=== PATIENT | female | born 1990 | race African-American/Black ===

== ENCOUNTER 2020-08-29 12:55 | Emergency (ER) | payer OTHER, SELFPAY ==
--- NOTE | ~2020-08-29 | XR_ITS ---
EXAMINATION: XR chest 1V portable INDICATION: Transient alteration of awareness TECHNIQUE: Portable AP chest at 1332 hours COMPARISON: None available FINDINGS: The lungs are free of acute opacities. There is no pleural effusion or pneumothorax. The ca rdiomediastinal silhouette is normal. The visualized osseous structures are unremarkable. IMPRESSION: 1. No acute cardiopulmonary abnormality. Reviewed, dictated and finalized at location A. P BREAKER
--- NOTE | ~2020-08-29 | CT_ITS ---
EXAMINATION: CT brain wo con INDICATION: Transient alteration of awareness COMPARISON: None TECHNIQUE: Standard unenhanced head CT. The dose-length product (DLP) was 605.33 mGy-cm. The mA was a djusted according to patient size. Iterative reconstruction technique was employed. FINDINGS: There is no intracranial hemorrhage, acute infarction, or abnormal mass lesion. The ventric les are normal. There is no abnormal mass effect or midline shift. The zelaya-white matter differentiat ion is normal. The basal cisterns are patent. The orbits are normal. The paranasal sinuses, mastoids and calvarium are normal. IMPRESSION: 1. No acute intracranial abnormality. Reviewed, dictated and finalized at location A. NATAL DIRECTOR
[2020-08-29 12:50] VITALS: BP 109/58; PULSE 92; RESP 20; TEMP 36.6; O2SAT 100
--- NOTE | 2020-08-29 12:58 | ECG_ITS ---
Measurements Intervals [place] Rate: 84 P: 57 CA: 155 QRS: 45 QRSD: 85 T: 37 QT: 358 QTc: 423 Interpretive Statements SINUS RHYTHM POSSIBLE LEFT ATRIAL ENLARGEMENT BORDERLINE ECG Electronically Signed On 08-29-2020 16:23:04 HOSPITAL NURSE by Antonio Dacosta D.O.
--- NOTE | 2020-08-29 13:32 | ED.DIZZY ---
HPI - Dizziness General Chief Complaint: Syncope Stated Complaint: dizzy Time Seen by Provider: 08/29/20 12:56 Source: patient and EMS Mode of arrival: EMS Limitations: no limitations History of Present Illness HPI Narrative: Patient is 30 years old -[place] female presented to the ED because of headache since diagnosis of Covid infection June 2020. No new changes today, patient denies any aggravating or relieving factors. Patient also complaining of dizziness which started today prior to arrival, spinning, associated with nausea. Worse with head or body movement, better if she lays still. Patient denies having similar symptoms. Currently her symptoms are improving but still there. Patient denies any fever, chills, shortness of breath, chest pain, palpitation, back pain. Related Data Allergies Allergy/AdvReac Type Severity Reaction Status Date / Time No Known Allergies Allergy Verified 08/29/20 12:55 Review of Systems Review of Systems: Narrative: CONSTITUTIONAL: Denies fever, chills, or sweats. EYES: Denies visual changes, redness, or discharge. ENT: Denies rhinorrhea, congestion, sore throat, or otalgia. CARDIOVASCULAR: Denies chest pain, palpitations, or edema. RESPIRATORY: Denies cough or dyspnea. GASTROINTESTINAL: Denies abdominal pain, nausea, vomiting, or diarrhea. GENITOURINARY: Denies dysuria or hematuria. SKIN: Denies rash or itching. MUSCULOSKELETAL: Denies back pain, joint pain, or myalgia. NEUROLOGIC: Headache and dizziness PSYCHIATRIC: Denies anxiety or depression. Exam Narrative: Exam Narrative: General appearance: Well-developed, well-nourished, patient kids are at the bedside. Skin: Normal color Head: Normocephalic, nontraumatic Eyes: Clear conjunctiva ENT: Oropharynx normal, ears normal, nose normal Neck: Supple, nontender Chest and respiratory: Airway patent, no respiratory distress, no accessory muscle use Heart: Regular rate/rhythm Abdomen: Soft, nontender, no organomegaly, quiet bowel sounds Vascular: Normal peripheral pulses, normal capillary refill. Musculoskeletal: Normal range of motion, nontender back Neurologic: Alert and oriented ?3, FILLER WIPER is normal as tested, no gross motor deficit Course Course Emergency Course: Stable, improving Vital Signs Vital signs: Vital Signs Temperature 36.6 C 08/29/20 12:50 Pulse Rate 92 08/29/20 12:50 Respiratory Rate 20 01/24/21 12:50 Blood Pressure 109/58 L 08/29/20 12:50 Pulse Oximetry 100 08/29/20 12:50 Temperature 36.6 C 08/29/20 12:50 Pulse Rate 92 08/29/20 12:50 Respiratory Rate 20 08/29/20 12:50 Blood Pressure 109/58 L 08/29/20 12:50 Pulse Oximetry 100 08/29/20 12:50 MDM - Dizziness MDM Narrative Medical decision making narrative: Patient presents with headache since with a diagnosis of Covid infection which is expected consequences of Covid infection. Patient also presents with dizziness which started prior to arrival, consistent with benign positional vertigo, not sure has anything to do with the Covid infection or not. Labs, orthostatic blood pressure, CT head, ordered. Further plan to follow Differential Diagnosis Differential diagnosis: Likely benign paroxysmal positional vertigo, orthostatic hypotension and acute vestibular neuronitis Lab Data Result diagrams: 08/29/20 13:40 08/29/20 13:40 Labs: Lab Results 08/29/20 08/29/20 08/29/20 Range/Units 13:40 13:40 13:40 WBC 6.7 (4.5-10.0) K/mm3 RBC 4.01 L (4.2-5.4) M/mm3 Hgb 12.2 (12.0-15.0) g/dL Hct 37.2 (37.0-47.0) % MCV 92.8 (80-100) fl MCH 30.4 (26-34) pg MCHC 32.8 (32-36) g/dl RDW 12.8 (11.5-14
[2020-08-29 13:46] LABS: Basophils Percent Auto 0.4 % (0.2-1.2); Eosinophils Absolute Auto 0.1 K/mm3 (0-0.3); Eosinophils Percent Auto 0.7 % (0-4.4); Hematocrit 37.2 % (37.0-47.0); Hemoglobin 12.2 g/dL (12.0-15.0); Immature Granulocyte Absolute 0.02 K/mm3 (0.00-0.031); Immature Granulocyte Percent A 0.3 % (0-0.5); Lymphocytes Absolute Auto 1.97 K/mm3 (0.9-3.2); Lymphocytes Percent Auto 29.5 % (18.3-44.2); Mean Corpuscular HGB Conc 32.8 g/dl (32-36); Mean Corpuscular Hemoglobin 30.4 pg (26-34); Mean Corpuscular Volume 92.8 fl (80-100); Mean Platelet Volume 9.2 fl (7.4-10.4); Monocytes Absolute Auto 0.6 K/mm3 (0.1-0.6); Monocytes Percent Auto 8.7 % (2.6-8.5); Neutrophils Percent Auto 60.4 % (45.5-73.1); Platelet Count Result 359 k/mm3 (150-375); Red Blood Count 4.01 M/mm3 (4.2-5.4); Red Cell Distribution Width 12.8 % (11.5-14.5); White Blood Count 6.7 K/mm3 (4.5-10.0)
[2020-08-29 13:58] LABS: Alanine Aminotransferase 24 U/L (4-35); Albumin Level 3.9 g/dL (3.5-5.1); Alkaline Phosphatase 52 U/L (38-126); Anion Gap 9 mmol/L (8-16); Aspartate Amino Transferase 26 U/L (14-36); Bilirubin,Total 0.5 mg/dL (0.2-1.3); Blood Urea Nitrogen 13 mg/dL (7-17); Calcium 8.6 mg/dL (8.4-10.2); Carbon Dioxide 23 mmol/L (22-30); Chloride 105 mmol/L (98-107); Estimated Glomerular Filt Rate > 60; Glucose 109 mg/dL (65-105); Potassium 3.9 mmol/L (3.4-5.0); Sodium 137 mmol/L (137-145)
[2020-08-29 14:09] LABS: Troponin I < 0.012 ng/mL (0.000-0.034)
[2020-08-29] MEDS: ONDANSETRON INJ 4 MG/2 ML VIAL IV PUSH (14:13)
[2020-08-29 14:15] LABS: D Dimer 0.27 ug/mL (<0.48)
[2020-08-29] MEDS: diazePAM INJ (*CRX) 10 MG/2 ML SYRINGE 5 MG IV PUSH (14:15)
[2020-08-29] MEDS: MECLIZINE HCL 25 MG TABLET PO (14:17)
[2020-08-29 16:00] VITALS: BP 102/66; PULSE 70; RESP 16; O2SAT 99
== END 2020-08-29 16:00 | disposition home or self-care (01) ==
PROVIDERS: Emergency Provider Emergency Medicine
DX: R51.9 Headache, unspecified (principal); R42 Dizziness and giddiness; Z86.16 Personal history of COVID-19; R94.31 Abnormal electrocardiogram [ECG] [EKG]
CPT/HCPCS: 36415; 70450; 71045; 80053; 83735; 84484; 85025; 85380; 93005; 96374; 96375; 99284; A9270; J2405; J3360